=== PATIENT | male | born 2000 | race Hispanic/Latino ===

== ENCOUNTER 2024-01-19 18:27 | Emergency (ER) | payer SELFPAY | END 2024-01-20 02:10 | disposition home or self-care (01) | LOC: ERS 18:27 | DX: T63.001A Toxic effect of unspecified snake venom, accidental (unintentional), initial encounter (principal); M79.631 Pain in right forearm; M62.82 Rhabdomyolysis; I10 Essential (primary) hypertension | CPT/HCPCS: 80053; 82550; 83605; 83735; 85025; 85384; 85610; 85730; 93005; 96361; 96374; 96375; J1885; J2270; J2405 ==